=== PATIENT | female | born 1955 | race African-American/Black ===

== ENCOUNTER 2019-02-08 16:47 | Inpatient (IN) | payer OTHER ==
--- NOTE | 2019-02-08 17:08 | PDOC ---
Rapid Medical Evaluation Chief Complaint: Loss of Appetite Medical Evaluation: I have performed a brief in-person evaluation of this patient. The patient presents with a chief complaint of: Hx of seizures (is on keppra, vimpat, carbamazepine, phenobarbital), R sided hemiparesis (unknown cause) presents with decreased appetite x 3 days; denies vomiting, diarrhea, fever Pertinent physical exam findings: In NAD, +R sided paralysis I have ordered the following: Labs, EKG The patient will proceed to the ED for further evaluation. 02/08/19 17:03 Discharge Disposition - Discharge Dispostion Condition at time of disposition: Stable - Referrals - Patient Instructions - Post Discharge Activity
--- NOTE | 2019-02-08 17:45 | PDOC ---
History of Present Illness - General Chief Complaint: Loss of Appetite Stated Complaint: LOSS OF APPETITE Time Seen by Provider: 02/08/19 17:03 History Source: Family Exam Limitations: Clinical Condition - History of Present Illness Initial Comments: 02/08/19 17:55 63 year old female with PMH developmental delay, right sided weakness, one kidney (nephrectomy for suspected renal cancer, was not renal cancer), UTI, seizure disorder brought to ED by niece for failure to thrive. Niece stated over the last three days pt has been eating less, much more agitated than normal. Pt is unable to provide history or ROS. Ambulates with wheelchair. Baseline alert and oriented to person. Allergies: NKDA Past History - Past Medical History Allergies/Adverse Reactions: Allergies Allergy/AdvReac Type Severity Reaction Status Date / Time No Known Allergies Allergy Verified 02/08/19 17:04 COPD: No Seizures: Yes Other medical history: paralysed on rt.side. - Immunization History Immunization Up to Date: No - Suicide/Smoking/Psychosocial Hx Smoking History: Current every day smoker Have you smoked in the past 12 months: Yes Number of Cigarettes Smoked Daily: 2 Information on smoking cessation initiated: No Hx Alcohol Use: No Drug/Substance Use Hx: No Review of Systems - Review of Systems Able to Perform ROS?: No (Dementia) *Physical Exam - Vital Signs Last Vital Signs Temp Pulse Resp BP Pulse Ox 97.6 F 84 16 102/68 98 02/08/19 17:04 02/08/19 17:04 02/08/19 17:04 02/08/19 17:04 02/08/19 17:04 - Physical Exam Comments: 02/08/19 17:57 Constitutional: Well-nourished, Well-developed, appearing stated age. HEENT: head is normocephalic, atraumatic. EOMI. PERRLA. Neck: supple. Full ROM. Heart: regular rhythm. no murmurs, rubs or gallops. Lungs: clear to auscultation bilaterally. no crackles, rhonchi or wheezing. no stridor. Abdomen: soft, nontender. normal bowel sounds. no rebound, guarding, masses. Extremities: peripheral pulses intact. no lower extremity edema. Neurological: CN 2-12 grossly intact. moves all four extremities. Psych: awake, alert. follows commands. oriented to person. answers questions appropriately but requires repeated questions. ED Treatment Course - LABORATORY CBC & Chemistry Diagram: 02/08/19 18:27 02/08/19 18:27 Medical Decision Making - Medical Decision Making 02/08/19 17:58 63 year old female with above PMH brought to ED by niece for failure to thrive, AMS. Initial Vital Signs Temp Pulse Resp BP Pulse Ox 97.6 F 84 16 102/68 98 02/08/19 17:04 02/08/19 17:04 02/08/19 17:04 02/08/19 17:04 02/08/19 17:04 Afebrile. No tachycardia. No tachypnea. Hypotensive. No hypoxia on room air. Labs ordered: CBC, CMP, troponin, UA/UC Imaging ordered: CXR Medications ordered: normal saline bolus 500 cc EKG performed at 1754: rate 74, regular rhythm, normal axis, normal intervals, no acute ST changes. 02/08/19 19:04 CBC WBC 5.8 K/mm3 (4.0-10.0) 02/08/19 18:27 RBC 4.21 M/mm3 (3.60-5.2) 02/08/19 18:27 Hgb 12.4 GM/dL (10.7-15.3) 02/08/19 18:27 Hct 38.8 % (32.4-45.2) 02/08/19 18:27 MCV 92.2 fl (80-96) 02/08/19 18:27 MCH 29.6 pg (25.7-33.7) 02/08/19 18: MCHC 32.0 g/dl (32.0-36.0) 02/08/19 18:27 RDW 14.3 % (11.6-15.6) 02/08/19 18:27 Plt Count 298 K/MM3 (134-434) 02/08/19 18:27 MPV 7.2 fl (7.5-11.1) L 02/08/19 18:27 Absolute Neuts (auto) 2.6 K/mm3 (1.5-8.0) 02/08/19 18:27 Neutrophils % 44.0 % (42.8-82.8) 02/08/19 18:27 Lymphocytes % 45.8 % (8-40) H 02/08/19 18: Monocytes % 5.9 % (3.8-10.2) 02/08/19 18: Eosinophils % 3.7 % (0-4.5) 02/08/19 18: Basophils % 0.6 % (0-2.0) 02/08/19 18: Nucleated RBC % 0 % (0-0) 02/08/19 18: No leukocytosis. No anemia. 02/08/19 20:11 CMP Sodium 137 mmol/L (136-145) 02/08/19 18: Potassium 4.3 mmol/L (3.5-5.1) 02/08/19: Chloride 100 mmol/L (98-107) 02/08/19: Carbon Dioxide 29 mmol/L (21-32) 02/08/19 18: Anion Gap 7 MMOL/L (8-16) L 02/08/19 18: BUN 13 mg/dL (7-18) 02/08/19 18: Creatinine 1.0 mg/dL (0.55-1.3) 02/08/19 18: Est GFR (CKD-EPI)AfAm 70.42 02/08/19 18: Est GFR (CKD-EPI)NonAf 60.76 02/08/19 18: Random Glucose 93 mg/dL (74-106) 02/08/19 18: Lactic Acid 1.3 mmol/L (0.4-2.0) 02/08/19 18:30 Calcium 8.9 mg/dL (8.5-10.1) 02/08/19 18: Magnesium 2.3 mg/dL (1.8-2.4) 02/08/19 18: Total Bilirubin 0.2 mg/dL (0.2-1) 02/08/19 18: AST 20 U/L (15-37) 02/08/19 18: ALT 17 U/L (13-61) 02/08/19 18: Alkaline Phosphatase 221 U/L (45-117) H 02/08/19 18: Troponin I 0.02 ng/ml (0.00-0.05) 02/08/19 18: Total Protein 8.6 g/dl (6.4-8.2) H 02/08/19 18:27 Albumin 4.0 g/dl (3.4-5.0) 02/08/19 18:27 No electrolyte abnormalities. No LUISA. Normal troponin. Urine Test Results Urine Color Yellow 02/08/19 18:44 Urine Appearance Turbid 02/08/19 18:44 Urine pH 6.0 (5.0-8.0) 02/08/19 18:44 Ur Specific [employer] 1.021 (1.010-1.035) 02/08/19 18:44 Urine Protein 2+ (NEGATIVE) H 02/08/19 18:44 Urine Glucose (UA) Negative (NEGATIVE) 02/08/19 18:44 Urine Ketones Trace (NEGATIVE) H 02/08/19 18:44 Urine Blood Negative (NEGATIVE) 02/08/19 18:44 Urine Nitrite Negative (NEGATIVE) 02/08/19 18:44 Urine Bilirubin Negative (NEGATIVE) 02/08/19 18:44 Ur Leukocyte Esterase 3+ (NEGATIVE) H 02/08/19 18:44 WBC 200+ Pt has UTI Medications ordered: Ceftriaxone 1g IV Microblog sent for admission for AMS, UTI, failure to thrive. Pending admission. *DC/Admit/Observation/Transfer Diagnosis at time of Disposition: UTI (urinary tract infection), Altered mental status, Failure to thrive - Discharge Dispostion Condition at time of disposition: Stable Decision to Admit order: Yes - Referrals Referrals: Donaldo Altamirano MD [Primary Care Provider] - - Patient Instructions - Post Discharge Activity
[2019-02-08 18:42] LABS: BASO % 0.6 % (0-2.0); EOS % 3.7 % (0-4.5); HEMATOCRIT 38.8 % (32.4-45.2); HEMOGLOBIN 12.4 GM/dL (10.7-15.3); LYMPH % 45.8 % (8-40); MCH 29.6 pg (25.7-33.7); MEAN CELL VOLUME 92.2 fl (80-96); MEAN PLT VOLUME 7.2 fl (7.5-11.1); MONO % 5.9 % (3.8-10.2); PLATELET COUNT 298 K/MM3 (134-434); RBC 4.21 M/mm3 (3.60-5.2); RDW 14.3 % (11.6-15.6); WHITE BLOOD COUNT 5.8 K/mm3 (4.0-10.0)
[2019-02-08 18:57] LABS: EPI CELLS 2.1 /HPF (0-5/HPF); HYALINE CASTS 12 /lpf (0-8); URINE APPEARANCE TURBID; URINE BACTERIA 7754.1 /hpf (NEGATIVE); URINE BILIRUBIN NEGATIVE (NEGATIVE); URINE COLOR YELLOW; URINE GLUCOSE (UA) NEGATIVE (NEGATIVE); URINE KETONE TRACE (NEGATIVE); URINE LEUK ESTERASE 3+ (NEGATIVE); URINE NITRITE NEGATIVE (NEGATIVE); URINE PROTEIN 2+ (NEGATIVE); URINE WBC 219 /hpf (0-5)
[2019-02-08 19:19] LABS: BILIRUBIN,TOTAL 0.2 mg/dL (0.2-1); CALCIUM 8.9 mg/dL (8.5-10.1); MAGNESIUM 2.3 mg/dL (1.8-2.4); POTASSIUM 4.3 mmol/L (3.5-5.1); TOT PROT 8.6 g/dl (6.4-8.2)
[2019-02-08 19:21] LABS: INR 0.98 (0.83-1.09); PROTHROMBIN TIME (PATIENT) 11.6 SEC (9.7-13.0)
[2019-02-08 19:24] LABS: ACTIVATED PTT 31.6 SECONDS (25.2-36.5)
--- NOTE | 2019-02-08 19:38 | PDOC ---
Documentation entered by Vanessa Zimmerman SCRIBE, acting as scribe for Magdy Cook MD. Magdy Cook MD: This documentation has been prepared by the Erasmo lira Daisy, SCRIBE, under my direction and personally reviewed by me in its entirety. I confirm that the documentation accurately reflects all work, treatment, procedures, and medical decision making performed by me. Attending Attestation - Resident Resident Name: Rody Nguyen - ED Attending Attestation I have performed the following: I have examined & evaluated the patient, The case was reviewed & discussed with the resident, I agree w/resident's findings & plan - HPI HPI: 02/08/19 19:19 The patient is a 63YOF with a PMH of developmental delay, s/p nephrectomy, UTIs , and seizure disorder who was brought into the ED by her niece for decreased PO intake for the past 3 days and has been more agitated than baseline. Patient is unable to provide further history. She is oriented to person at baseline. Allergies: NKDA - Physicial Exam PE: 02/08/19 21:41 Agree with exam as documented by resident - Medical Decision Making 02/08/19 21:41 63F developmental delay, s/p nephrectomy, UTIs, and seizure disorder w/ VNS implanted here with acute agitation and change in baseline behavior including refusing PO Evaluate for likely infectious source, consider electrolyte abnormality, anemia. If no obvious cause eval for organic intracranial pathology f/u labs, ua dispo per clinical course 02/08/19 21:45 +UTI, likely cause of acute agitation Abx admit
[2019-02-08] MEDS ORDERED: CEFTRIAXONE 1 GM in DEXTROSE 5%-WATER - 100 ML IVPB ONE (19:53)
[2019-02-08] MEDS ORDERED: SODIUM CHLORIDE 500 ML IV STA (19:53)
[2019-02-08] MEDS ORDERED: CEFTRIAXONE 1 GM/50 ML BAG ONE (19:56)
[2019-02-08 20:21] LABS: URINE RBC 6.7 /hpf (0-4)
[2019-02-08 20:22] LABS: YEAST NONE SEEN (NEGATIVE)
--- NOTE | 2019-02-08 22:20 | HP ---
CHIEF COMPLAINT:Failure to thrive PCP:Dr. Altamirano HISTORY OF PRESENT ILLNESS: Sheela Hearn is a 63 year old female with PMH developmental delay, right sided weakness, one kidney (nephrectomy for suspected renal cancer, was not renal cancer), chronic UTI, seizure disorder brought to ED by niece for failure to thrive. pt seen in ED, no family present, pt unable to give history, as per ED notes, Niece stated over the last three days pt has been eating less, much more agitated than normal. Pt is unable to provide history or ROS. Ambulates with wheelchair. Baseline alert and oriented to person. ER course was notable for: (1)+UA (2)lactic wnl (3)afebrile Recent Travel: PAST MEDICAL HISTORY:right sided weakness, one kidney (nephrectomy for suspected renal cancer, was not renal cancer), chronic UTI, seizure disorder PAST SURGICAL HISTORY:Nephrectomy Social History: Smoking:current smoker Alcohol:no Drugs: no Family History: Allergies No Known Allergies Allergy (Verified 02/08/19 17:04) HOME MEDICATIONS: Keppra dosage? REVIEW OF SYSTEMS unable to assess, developmental delay PHYSICAL EXAMINATION Vital Signs - 24 hr 02/08/19 17:04 Temperature 97.6 F Pulse Rate 84 Respiratory 16 Rate Blood Pressure 102/68 O2 Sat by Pulse 98 Oximetry (%) GENERAL: Awake, alert, and fully oriented, in no acute distress. HEAD: Normal with no signs of trauma. EYES: Pupils equal, round and reactive to light, extraocular movements intact, sclera anicteric, conjunctiva clear. No lid lag. EARS, NOSE, THROAT: Ears normal, nares patent, oropharynx clear without exudates. Moist mucous membranes. NECK: Normal range of motion, supple without lymphadenopathy, JVD, or masses. LUNGS: Breath sounds equal, clear to auscultation bilaterally. No wheezes, and no crackles. No accessory muscle use. HEART: Regular rate and rhythm, normal S1 and S2 without murmur, rub or gallop. ABDOMEN: Soft, nontender, not distended, normoactive bowel sounds, no guarding, no rebound, no masses. No hepatomegaly or splenomegaly. MUSCULOSKELETAL: Normal range of motion at all joints. No bony deformities or tenderness. No CVA tenderness. UPPER EXTREMITIES: 2+ pulses, warm, well-perfused. No cyanosis. No clubbing. No peripheral edema. LOWER EXTREMITIES: 2+ pulses, warm, well-perfused. No calf tenderness. No peripheral edema. NEUROLOGICAL: Cranial nerves II-XII intact. Normal speech. Normal gait. PSYCHIATRIC: Cooperative. Good eye contact. Appropriate mood and affect. SKIN: Warm, dry, normal turgor, no rashes or lesions noted, normal capillary refill. Laboratory Results - last 24 hr 02/08/19 02/08/19 02/08/19 18:27 18:27 18:27 WBC 5.8 RBC 4.21 Hgb 12.4 Hct 38.8 MCV 92.2 MCH 29.6 MCHC 32.0 RDW 14.3 Plt Count 298 MPV 7.2 L Absolute Neuts (auto) 2.6 Neutrophils % 44.0 Lymphocytes % 45.8 H Monocytes % 5.9 Eosinophils % 3.7 Basophils % 0.6 Nucleated RBC % 0 PT with INR INR PTT (Actin FS) Sodium 137 Potassium 4.3 Chloride 100 Carbon Dioxide 29 Anion Gap 7 L BUN 13 Creatinine 1.0 Est GFR (CKD-EPI)AfAm 70.42 Est GFR (CKD-EPI)NonAf 60.76 Random Glucose 93 Lactic Acid Calcium 8.9 Magnesium 2.3 Total Bilirubin 0.2 AST 20 ALT 17 Alkaline Phosphatase 221 H Troponin I 0.02 Total Protein 8.6 H Albumin 4.0 Urine Color Urine Appearance Urine pH Ur Specific Carey Urine Protein Urine Glucose (UA) Urine Ketones Urine Blood Urine Nitrite Urine Bilirubin Urine Urobilinogen Ur Leukocyte Esterase Urine WBC (Auto) Urine RBC (Auto) Urine Casts (Auto) U Epithel Cells (Auto) Urine Bacteria (Auto) Urine Yeast (Auto) 02/08/19 02/08/19 02/08/19 18:30 18:30 18:44 WBC RBC Hgb Hct MCV MCH MCHC RDW Plt Count MPV Absolute Neuts (auto) Neutrophils % Lymphocytes % Monocytes % Eosinophils % Basophils % Nucleated RBC % PT with INR 11.60 INR 0.98 PTT (Actin FS) 31.6 Sodium Potassium Chloride Carbon Dioxide Anion Gap BUN Creatinine Est GFR (CKD-EPI)AfAm Est GFR (CKD-EPI)NonAf Random Glucose Lactic Acid 1.3 Calcium Magnesium Total Bilirubin AST ALT Alkaline Phosphatase Troponin I Total Protein Albumin Urine Color Yellow Urine Appearance Turbid Urine pH 6.0 Ur Specific [employer] 1.021 Urine Protein 2+ H Urine Glucose (UA) Negative Urine Ketones Trace H Urine Blood Negative Urine Nitrite Negative Urine Bilirubin Negative Urine Urobilinogen 1.0 Ur Leukocyte Esterase 3+ H Urine WBC (Auto) 219 Urine RBC (Auto) 6.7 Urine Casts (Auto) 12 U Epithel Cells (Auto) 2.1 Urine Bacteria (Auto) 7754.1 Urine Yeast (Auto) None seen ASSESSMENT/PLAN: Sheela Hearn is a 63 yr old F, medical condition developmental delay, seizure disorder, right sided weakness, chronic UTI, admitted for Admitting Diagnosis AMS UTI Chronic Problem Seizure disorder Developmental delay A/P: #AMS #UTI -UA +leuk, -lactic wnl -IVF -IV rocephin 1gram -urine cx in process #Seizure disorder -pt on keppra dose not verified, -seizure precautions FEN: IVF Monitor electrolytes Reg diet Visit type - Emergency Visit Emergency Visit: Yes Care time: The patient presented to the Emergency Department on the above date and was hospitalized for further evaluation of their emergent condition. - New Patient This patient is new to me today: Yes Date on this admission: 02/08/19 - Critical Care Critical Care patient: No
[2019-02-08] MEDS ORDERED: HEPARIN NA (PORCINE) 5,000 UNITS/ML 1ML VIAL ONE (23:44)
[2019-02-09] MEDS: SODIUM CHLORIDE 1,000 ML IV SCH ×3 (01:05→20:38)
[2019-02-09] MEDS: HEPARIN NA (PORCINE) 5,000 UNITS/ML 1ML VIAL SQ SCH ×3 (01:06→22:02)
[2019-02-09 09:25] LABS: HEMATOCRIT 32.6 % (32.4-45.2); HEMOGLOBIN 10.5 GM/dL (10.7-15.3); MCH 29.8 pg (25.7-33.7); MCHC 32.3 g/dl (32.0-36.0); MEAN CELL VOLUME 92.5 fl (80-96); MEAN PLT VOLUME 7.3 fl (7.5-11.1); PLATELET COUNT 267 K/MM3 (134-434); RBC 3.52 M/mm3 (3.60-5.2); RDW 14.4 % (11.6-15.6); WHITE BLOOD COUNT 5.4 K/mm3 (4.0-10.0)
[2019-02-09] MEDS ORDERED: cefTRIAXone SODIUM 1 GM VIAL ONE (09:53)
[2019-02-09] MEDS ORDERED: DEXTROSE 5%-WATER - 50 ML IVPB ONE (09:53)
[2019-02-09 09:54] LABS: ALBUMIN 3.1 g/dl (3.4-5.0); BILIRUBIN,TOTAL 0.2 mg/dL (0.2-1); CALCIUM 8.5 mg/dL (8.5-10.1); CREATININE 0.8 mg/dL (0.55-1.3); POTASSIUM 4.2 mmol/L (3.5-5.1); TOT PROT 6.7 g/dl (6.4-8.2)
[2019-02-09] MEDS: CEFTRIAXONE 1 GM in DEXTROSE 5%-WATER - 50 ML IVPB SCH (10:05)
--- NOTE | 2019-02-09 14:42 | EKG ---
Test Reason : Blood Pressure : / mmHG Vent. Rate : 074 BPM Atrial Rate : 074 BPM P-R Int : 166 ms QRS Dur : 070 ms QT Int : 384 ms P-R-T Axes : 051 022 059 degrees QTc Int : 426 ms NORMAL SINUS RHYTHM NORMAL ECG NO PREVIOUS ECGS AVAILABLE Confirmed by MARY TANG MD ([id number]) on 02/09/2019 2:41:56 PM Referred By: Confirmed By:MARY TANG MD
[2019-02-09 16:42] VITALS: BMI 20.3
[2019-02-10] MEDS: SODIUM CHLORIDE 1,000 ML IV SCH ×2 (00:24→12:35)
[2019-02-10] MEDS ORDERED: levETIRAcetam 500 MG TABLET (FP) PO ONE (00:28)
[2019-02-10] MEDS ORDERED: PT OWN MED DRAWER 7, Y5N ONE ×2 (09:10→21:20)
[2019-02-10] MEDS ORDERED: cefTRIAXone SODIUM 1 GM VIAL ONE (09:11)
[2019-02-10] MEDS ORDERED: DEXTROSE 5%-WATER - 50 ML IVPB ONE (09:11)
[2019-02-10] MEDS: HEPARIN NA (PORCINE) 5,000 UNITS/ML 1ML VIAL SQ SCH ×2 (09:20→21:56)
[2019-02-10] MEDS: CEFTRIAXONE 1 GM in DEXTROSE 5%-WATER - 50 ML IVPB SCH (09:28)
[2019-02-10] MEDS ORDERED: levETIRAcetam 500 MG/5 ML ORAL SOLUTION (UNIT-DOSE CUPS) PO SCH (10:00)
--- NOTE | 2019-02-10 11:32 | PN ---
Physical Exam: SUBJECTIVE: Patient seen and examined at the bedside. had some abdominal discomfort but denies any other malaise. After she was seen, received microblog that patient had a seizure at 11:45a.m today that lasted apx 5 seconds. saw patient post seizure and she appeared to be post ilctal. vitals stable. OBJECTIVE: reported to me that patient had a seizure at 11:45, seen post ictal, seizure witnessed by staff, upper body tremors not presently on her home regimen of anti epilectics. will order: meds confirmed by RN will convert seizure meds to IV form further will order keppra, vimpat and phenobarbitol levels. uc with strep viridians. will order blood cultures Vital Signs Period Temp Pulse Resp BP Sys/[place] Pulse Ox Last 24 Hr 97.9 F-98.2 F 70-77 18-20 106-125/45-63 97-99 GENERAL: awake earlier, now post ictal HEAD: Normal with no signs of trauma. EYES: PERRL, extraocular movements intact, sclera anicteric, conjunctiva clear. No ptosis. ENT: Ears normal, nares patent, oropharynx clear without exudates, moist mucous membranes. NECK: Trachea midline, full range of motion, supple. LUNGS: Breath sounds equal, clear to auscultation bilaterally HEART: Regular rate and rhythm, ABDOMEN: Soft, nontender, nondistended, normoactive bowel sounds EXTREMITIES: ankle non pittine edema NEUROLOGICAL: speech garbled, unsure of bed bound status, will order PT when more stable. SKIN: Warm, dry, normal turgor, no rashes or lesions noted Active Medications Generic Name Dose Route Start Last Admin Trade Name Freq PRN Reason Stop Dose Admin Heparin Sodium (Porcine) 5,000 unit 02/08/19 22:15 02/10/19 09:20 Heparin - SQ 5,000 unit BID MARY Administration Sodium Chloride 1,000 mls @ 75 mls/hr 02/08/19 22:15 02/10/19 00:24 Normal Saline - IV Not Given ASDIR MARY Ceftriaxone Sodium 1 gm/ 50 mls @ 100 mls/hr 02/09/19 10:00 02/10/19 09:28 Dextrose IVPB 100 mls/hr DAILY MARY Administration Protocol Levetiracetam 1,500 mg 02/10/19 10:00 02/10/19 09:20 Keppra Oral Solution - PO 1,500 mg BID MARY Administration ASSESSMENT/PLAN: The patient is a 63 year old female with a significant past medical history of developmental delay, s/p nephrectomy (for?), chronic UTIs, and seizure disorder. She was brought into the ED by her family for decreased PO intake x 3 days and increased agitation. Patient is unable to provide me with any further history. She is admitted for a septic workup and antibiotics. Problem List - Problems (1) Seizures Assessment/Plan: Patient on Keppra, Vimpat and Phenobarbital home medications. Home seizure medications restarted today. She had a witnessed seizure today that lasted approximately 5 seconds. Will order Keppra, vimpat and phenobartital levels. Continue with seizure precautions and close monitoring of mental status. Maintain safety and aspiration precautions. Code(s): R56.9 - UNSPECIFIED CONVULSIONS (2) Failure to thrive syndrome, adult Assessment/Plan: Poor PO intake reported per ED documentation. Will add supplements and dietary consult. Add multivitamin, monitor albumin. Code(s): R62.7 - ADULT FAILURE TO THRIVE (3) Altered mental status Assessment/Plan: Agitation, altered mental status likely secondary to uncontrolled seizures in the setting of an acute infection. UC shows strep virdins. Will order blood cultures. Code(s): R41.82 - ALTERED MENTAL STATUS, UNSPECIFIED (4) UTI (urinary tract infection) Assessment/Plan: On Ceftriaxone 1 gram for UTI. UC grew strep viridins. awaiting sensititives. Continue IVF hydration. Code(s): N39.0 - URINARY TRACT INFECTION, SITE NOT SPECIFIED (5) Prophylactic measure Assessment/Plan: SCDs, heparin FEN: normal saline monitor electrolytes consult dietary full code Code(s): Z29.9 - ENCOUNTER FOR PROPHYLACTIC MEASURES, UNSPECIFIED Visit type - Emergency Visit Emergency Visit: Yes ED Registration Date: 02/08/19 Care time: The patient presented to the Emergency Department on the above date and was hospitalized for further evaluation of their emergent condition. - New Patient This patient is new to me today: Yes Date on this admission: 02/10/19 - Critical Care Critical Care patient: No - Discharge Referral Referred to [facility] Med [facility] No
[2019-02-10] MEDS ORDERED: Lacosamide 50 MG/5 ML ORAL SOLUTION UNIT CUPS PO SCH (11:45)
[2019-02-10] MEDS ORDERED: PHENobarbital 30 MG TABLET PO SCH (11:45)
[2019-02-10] MEDS ORDERED: Lacosamide 200 MG/20 ML VIAL IVPB ONE (13:00)
[2019-02-10] MEDS ORDERED: levETIRAcetam 500 MG/5 ML INJECTION VIAL IVPB ONE (13:00)
[2019-02-10] MEDS: PHENobarbital SODIUM 65 MG/1 ML VIAL IVPB SCH ×2 (13:13→22:15)
[2019-02-10] MEDS: carBAMazepine 200 MG TABLET PO SCH ×2 (13:13→21:55)
[2019-02-10] MEDS: MIRTAZAPINE 30 MG TABLET (FP) PO SCH (21:56)
[2019-02-10] MEDS: levETIRAcetam 500 MG/5 ML INJECTION VIAL IVPB SCH (23:28)
[2019-02-11] MEDS: SODIUM CHLORIDE 1,000 ML IV SCH ×2 (05:47→22:50)
--- NOTE | 2019-02-11 07:51 | PN ---
Progress Note, Physician - Current Medication List Current Medications: Active Medications Carbamazepine (Tegretol -) 200 mg PO BID [facility] Last Admin: 02/10/19 21:55 Dose: 200 mg Heparin Sodium (Porcine) (Heparin -) 5,000 unit SQ BID [facility] Last Admin: 02/10/19 21:56 Dose: 5,000 unit Sodium Chloride (Normal Saline -) 1,000 mls @ 75 mls/hr IV ASDIR [facility] Last Admin: 02/11/19 05:47 Dose: 75 mls/hr Ceftriaxone Sodium 1 gm/ (Dextrose) 50 mls @ 100 mls/hr IVPB DAILY [facility]; Protocol Last Admin: 02/10/19 09:28 Dose: 100 mls/hr Lacosamide (Vimpat Injection -) 150 mg IVPB DAILY [facility] Levetiracetam (Keppra Injection -) 1,500 mg IVPB BID [facility] Last Admin: 02/10/19 23:28 Dose: 1,500 mg Mirtazapine (Remeron -) 30 mg PO HS [facility] Last Admin: 02/10/19 21:56 Dose: 30 mg Phenobarbital (Phenobarbital Injection -) 32.4 mg IVPB BID [facility] Last Admin: 02/10/19 22:15 Dose: 32.4 mg - Objective Vital Signs: Vital Signs Temperature 98.2 F 02/11/19 06:00 Pulse Rate 81 02/11/19 06:00 Respiratory Rate 18 02/11/19 06:00 Blood Pressure 118/67 02/11/19 06:00 O2 Sat by Pulse Oximetry (%) 97 02/10/19 21:00 Labs: CBC, BMP 02/09/19 09:00 02/09/19 09:00 INR, PTT INR 0.98 (0.83-1.09) 02/08/19 18:30 Problem List - Problems (1) Seizures Assessment/Plan: Patient on Keppra, Vimpat and Phenobarbital home medications. Home seizure medications restarted today. She had a witnessed seizure today that lasted approximately 5 seconds. Will order Keppra, vimpat and phenobartital levels. Continue with seizure precautions and close monitoring of mental status. Maintain safety and aspiration precautions. Code(s): R56.9 - UNSPECIFIED CONVULSIONS (2) Failure to thrive syndrome, adult Assessment/Plan: Poor PO intake reported per ED documentation. Will add supplements and dietary consult. Add multivitamin, monitor albumin. Code(s): R62.7 - ADULT FAILURE TO THRIVE (3) Altered mental status Assessment/Plan: Agitation, altered mental status likely secondary to uncontrolled seizures in the setting of an acute infection. UC shows strep virdins. Will order blood cultures. Code(s): R41.82 - ALTERED MENTAL STATUS, UNSPECIFIED (4) UTI (urinary tract infection) Assessment/Plan: On Ceftriaxone 1 gram for UTI. UC grew strep viridins. awaiting sensititives. Continue IVF hydration. Code(s): N39.0 - URINARY TRACT INFECTION, SITE NOT SPECIFIED (5) Prophylactic measure Assessment/Plan: SCDs, heparin FEN: normal saline monitor electrolytes consult dietary full code Code(s): Z29.9 - ENCOUNTER FOR PROPHYLACTIC MEASURES, UNSPECIFIED
[2019-02-11 08:45] LABS: BASO % 0.5 % (0-2.0); EOS % 4.3 % (0-4.5); HEMATOCRIT 29.4 % (32.4-45.2); HEMOGLOBIN 9.7 GM/dL (10.7-15.3); LYMPH % 53.8 % (8-40); MCHC 32.8 g/dl (32.0-36.0); MEAN CELL VOLUME 91.6 fl (80-96); MEAN PLT VOLUME 7.1 fl (7.5-11.1); MONO % 7.6 % (3.8-10.2); NEUT % 33.8 % (42.8-82.8); PLATELET COUNT 258 K/MM3 (134-434); RBC 3.21 M/mm3 (3.60-5.2); RDW 14.1 % (11.6-15.6)
[2019-02-11] MEDS ORDERED: PT OWN MED DRAWER 7, Y5N ONE (09:04)
[2019-02-11 09:05] LABS: ALBUMIN 2.9 g/dl (3.4-5.0); BILIRUBIN,TOTAL 0.2 mg/dL (0.2-1); CALCIUM 8.7 mg/dL (8.5-10.1); CREATININE 0.7 mg/dL (0.55-1.3); MAGNESIUM 2.3 mg/dL (1.8-2.4); POTASSIUM 4.2 mmol/L (3.5-5.1); TOT PROT 6.4 g/dl (6.4-8.2)
[2019-02-11] MEDS ORDERED: DEXTROSE 5%-WATER - 50 ML IVPB ONE (09:05)
[2019-02-11] MEDS ORDERED: cefTRIAXone SODIUM 1 GM VIAL ONE (09:05)
[2019-02-11] MEDS: carBAMazepine 200 MG TABLET PO SCH ×2 (09:25→22:50)
[2019-02-11] MEDS: HEPARIN NA (PORCINE) 5,000 UNITS/ML 1ML VIAL SQ SCH ×2 (09:25→22:50)
[2019-02-11] MEDS: levETIRAcetam 500 MG/5 ML INJECTION VIAL IVPB SCH (09:57)
[2019-02-11] MEDS ORDERED: Lacosamide 200 MG/20 ML VIAL IVPB SCH (10:00)
--- NOTE | 2019-02-11 10:37 | PN ---
Physical Exam: SUBJECTIVE: Patient seen and examined OBJECTIVE: Vital Signs Period Temp Pulse Resp BP Sys/Kapadia Pulse Ox Last 24 Hr 97.9 F-98.4 F 80-98 18-22 100-148/55-72 97 GENERAL: awake and ate breakfast per nurse, now asleep on exam HEAD: Normal with no signs of trauma. EYES: PERRL, extraocular movements intact, sclera anicteric, conjunctiva clear. No ptosis. ENT: Ears normal, nares patent, oropharynx clear without exudates, moist mucous membranes. NECK: Trachea midline, full range of motion, supple. LUNGS: Breath sounds equal, clear to auscultation bilaterally HEART: Regular rate and rhythm, ABDOMEN: Soft, nontender, nondistended, normoactive bowel sounds EXTREMITIES: ankle non pittine edema NEUROLOGICAL: speech garbled, unsure of bed bound status, will order PT when more stable. SKIN: Warm, dry, normal turgor, no rashes or lesions noted Laboratory Results - last 24 hr 02/11/19 02/11/19 08:15 08:15 WBC 7.0 RBC 3.21 L Hgb 9.7 L Hct 29.4 L MCV 91.6 MCH 30.0 MCHC 32.8 RDW 14.1 Plt Count 258 MPV 7.1 L Absolute Neuts (auto) 2.4 Neutrophils % 33.8 L D Lymphocytes % 53.8 H Monocytes % 7.6 Eosinophils % 4.3 Basophils % 0.5 Nucleated RBC % 0 Sodium 138 Potassium 4.2 Chloride 107 Carbon Dioxide 26 Anion Gap 5 L BUN 16 Creatinine 0.7 Est GFR (CKD-EPI)AfAm 108.38 Est GFR (CKD-EPI)NonAf 93.51 Random Glucose 82 Calcium 8.7 Magnesium 2.3 Total Bilirubin 0.2 AST 16 ALT 14 Alkaline Phosphatase 168 H Total Protein 6.4 Albumin 2.9 L Active Medications Generic Name Dose Route Start Last Admin Trade Name Freq PRN Reason Stop Dose Admin Carbamazepine 200 mg 02/10/19 11:45 02/11/19 09:25 Tegretol - PO 200 mg BID MARY Administration Heparin Sodium (Porcine) 5,000 unit 02/08/19 22:15 02/11/19 09:25 Heparin - SQ 5,000 unit BID MARY Administration Sodium Chloride 1,000 mls @ 75 mls/hr 02/08/19 22:15 02/11/19 05:47 Normal Saline - IV 75 mls/hr ASDIR MARY Administration Ceftriaxone Sodium 1 gm/ 50 mls @ 100 mls/hr 02/09/19 10:00 02/10/19 09:28 Dextrose IVPB 100 mls/hr DAILY MARY Administration Protocol Lacosamide 150 mg 02/11/19 10:00 02/11/19 09:25 Vimpat Injection - IVPB 150 mg DAILY MARY Administration Levetiracetam 1,500 mg 02/10/19 22:00 02/11/19 09:57 Keppra Injection - IVPB 1,500 mg BID MARY Administration Mirtazapine 30 mg 02/10/19 22:00 02/10/19 21:56 Remeron - PO 30 mg HS MARY Administration Phenobarbital 32.4 mg 02/10/19 13:00 02/10/19 22:15 Phenobarbital Injection - IVPB 32.4 mg BID MARY Administration ASSESSMENT/PLAN: The patient is a 63 year old female with a significant past medical history of developmental delay, s/p nephrectomy (for?), chronic UTIs, and seizure disorder. She was brought into the ED by her family for decreased PO intake x 3 days and increased agitation. Patient is unable to provide me with any further history. She is admitted for a septic workup and antibiotics. Problem List - Problems (1) Seizures Assessment/Plan: Patient on Keppra, Vimpat and Phenobarbital home medications. Home seizure medications restarted on 02/10/19 She had a witnessed seizure 02/10 that lasted approximately 5 seconds with upper body tremors. Continue with seizure precautions and close monitoring of mental status. Awake earlier this a.m., now asleep. Maintain safety and aspiration precautions. levels pending neurology consulted. Code(s): R56.9 - UNSPECIFIED CONVULSIONS (2) Failure to thrive syndrome, adult Assessment/Plan: Monitor weights, dietary consult for supplements Code(s): R62.7 - ADULT FAILURE TO THRIVE (3) Altered mental status Assessment/Plan: Rule out acute infection. UC + strep virdians, blood cultures pending on Ceftriaxone 1 gram daily Code(s): R41.82 - ALTERED MENTAL STATUS, UNSPECIFIED (4) UTI (urinary tract infection) Assessment/Plan: + UC, on ceftriaxone. Code(s): N39.0 - URINARY TRACT INFECTION, SITE NOT SPECIFIED (5) Prophylactic measure Assessment/Plan: SCDs, heparin FEN: normal saline monitor electrolytes consult dietary full code Code(s): Z29.9 - ENCOUNTER FOR PROPHYLACTIC MEASURES, UNSPECIFIED Visit type - Emergency Visit Emergency Visit: Yes ED Registration Date: 02/08/19 Care time: The patient presented to the Emergency Department on the above date and was hospitalized for further evaluation of their emergent condition. - New Patient This patient is new to me today: No - Critical Care Critical Care patient: No - Discharge Referral Referred to [facility] Med P.C.: No
--- NOTE | 2019-02-11 10:41 | HP ---
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 Renal/: Yes: Other (solitary kidney) - Smoking History Smoking history: Current every day smoker Have you smoked in the past 12 months: Yes Aproximately how many cigarettes per day: 2 - Alcohol/Substance Use Hx Alcohol Use: No - Social History Usual Living Arrangement: Yes: With Significant Other ADL: Family Assistance History of Recent Travel: No Home Medications - Allergies Allergies/Adverse Reactions: Allergies Allergy/AdvReac Type Severity Reaction Status Date / Time No Known Allergies Allergy Verified 02/08/19 17:04 - Home Medications Home Medications: Ambulatory Orders Carbamazepine 200 mg PO BID 02/09/19 Escitalopram Oxalate 200 mg DAILY 02/09/19 Lacosamide Liquid [Vimpat Liquid -] 150 mg PO DAILY 02/09/19 Mirtazapine 30 mg PO HS 02/09/19 Omeprazole 20 mg PO DAILY 02/09/19 Phenobarbital 32.4 mg PO BID 02/09/19 levETIRAcetam [Keppra Oral Solution -] 1,500 mg PO BID 02/09/19 Physical Examination Vital Signs: Vital Signs Temperature 97.9 F 02/11/19 09:31 Pulse Rate 80 02/11/19 09:31 Respiratory Rate 18 02/11/19 09:31 Blood Pressure 117/65 02/11/19 09:31 O2 Sat by Pulse Oximetry (%) 97 02/10/19 21:00 Labs: CBC, BMP 02/11/19 08:15 02/11/19 08:15 Problem List - Problems (1) Seizures Code(s): R56.9 - UNSPECIFIED CONVULSIONS (2) Failure to thrive syndrome, adult Code(s): R62.7 - ADULT FAILURE TO THRIVE (3) Altered mental status Code(s): R41.82 - ALTERED MENTAL STATUS, UNSPECIFIED (4) UTI (urinary tract infection) Code(s): N39.0 - URINARY TRACT INFECTION, SITE NOT SPECIFIED (5) Prophylactic measure Code(s): Z29.9 - ENCOUNTER FOR PROPHYLACTIC MEASURES, UNSPECIFIED
[2019-02-11] MEDS: PHENobarbital SODIUM 65 MG/1 ML VIAL IVPB SCH (11:17)
[2019-02-11] MEDS: CEFTRIAXONE 1 GM in DEXTROSE 5%-WATER - 50 ML IVPB SCH (12:00)
[2019-02-11] MEDS: MULTIVITAMINS (DAILY MVI) TABLET (FP) PO SCH (14:14)
--- NOTE | 2019-02-11 16:25 | CON.NEURO ---
Consult - Alcohol/Substance Use Hx Alcohol Use: No - Smoking History Smoking history: Current every day smoker Have you smoked in the past 12 months: Yes Aproximately how many cigarettes per day: 2 Home Medications - Allergies Allergies/Adverse Reactions: Allergies Allergy/AdvReac Type Severity Reaction Status Date / Time No Known Allergies Allergy Verified 02/08/19 17:04 - Home Medications Home Medications: Ambulatory Orders Carbamazepine 200 mg PO BID 02/09/19 Escitalopram Oxalate 200 mg DAILY 02/09/19 Lacosamide Liquid [Vimpat Liquid -] 150 mg PO DAILY 02/09/19 Mirtazapine 30 mg PO HS 02/09/19 Omeprazole 20 mg PO DAILY 02/09/19 Phenobarbital 32.4 mg PO BID 02/09/19 levETIRAcetam [Keppra Oral Solution -] 1,500 mg PO BID 02/09/19 Physical Exam-Neuro Vital Signs: Vital Signs Temperature 98.0 F 02/11/19 14:40 Pulse Rate 73 02/11/19 14:40 Respiratory Rate 18 02/11/19 14:40 Blood Pressure 104/62 02/11/19 14:40 O2 Sat by Pulse Oximetry (%) 98 02/11/19 10:00 Labs: CBC, BMP 02/11/19 08:15 02/11/19 08:15 INR, PTT INR 0.98 (0.83-1.09) 02/08/19 18:30 Assessment/Plan cc History of Epilepsy HPI 63 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 Patient lives at home with family and completely dependent for basic activity of living. She has hisotry of nephrectomy , and epilepsy. She is on four AED ( KEPPRA 1500 mg po bid, phenobarb 32 mg po bid, lacosamide 150 mg once a day , cbz 200 mg po bid) Patient did not have any seizure . There is no new focal neurological symptom. PMHright sided weakness, one kidney (nephrectomy for suspected renal cancer, was not renal cancer), chronic UTI, seizure disorder PSH :Nephrectomy Social History: Smoking:current smoker Alcohol:no Drugs: no Home AED as above. NEUROLOGICAL EXAMINATION Alert follow command, speeech is slurred ( old), no neck stiffness EOmi, pupils reactive right sided hemparesis no brain imaging available no eed available Assessment/Plan 63 year old female history of epilepsy , she is on four aed and had seizure yesterday as medication was with held as there was no information available Plan: patient has improved and able to take medication orally - switch all medication to oral, spoke to nurse - no need for imaging or eeg at this time, as her did not came for seizure - ROME phillips Thanking you so much Gilberto Crespo MD
[2019-02-11] MEDS: MIRTAZAPINE 30 MG TABLET (FP) PO SCH (22:49)
[2019-02-11] MEDS: levETIRAcetam 500 MG TABLET (FP) PO SCH (22:49)
[2019-02-11] MEDS: PHENobarbital 30 MG TABLET PO SCH (22:49)
[2019-02-11] MEDS: LACOSAMIDE 50 MG TABLET PO SCH (22:50)
[2019-02-12 08:35] LABS: BASO % 0.5 % (0-2.0); EOS % 5.6 % (0-4.5); HEMATOCRIT 29.2 % (32.4-45.2); HEMOGLOBIN 9.7 GM/dL (10.7-15.3); LYMPH % 55.4 % (8-40); MCH 30.5 pg (25.7-33.7); MCHC 33.1 g/dl (32.0-36.0); MEAN CELL VOLUME 92.1 fl (80-96); MEAN PLT VOLUME 7.1 fl (7.5-11.1); NEUT % 30.5 % (42.8-82.8); PLATELET COUNT 250 K/MM3 (134-434); RBC 3.17 M/mm3 (3.60-5.2); RDW 14.6 % (11.6-15.6); WHITE BLOOD COUNT 6.1 K/mm3 (4.0-10.0)
[2019-02-12 09:06] LABS: ALBUMIN 2.8 g/dl (3.4-5.0); ALK PHOS 163 U/L (45-117); ANION GAP 6 MMOL/L (8-16); BILIRUBIN,TOTAL < 0.1 mg/dL (0.2-1); BLOOD UREA NITROGEN 16 mg/dL (7-18); CALCIUM 8.2 mg/dL (8.5-10.1); CHLORIDE 108 mmol/L (98-107); CO2 27 mmol/L (21-32); CREATININE 0.8 mg/dL (0.55-1.3); GLUCOSE,RANDOM 90 mg/dL (74-106); POTASSIUM 4.3 mmol/L (3.5-5.1); SGOT/AST 14 U/L (15-37); SGPT/ALT 14 U/L (13-61); SODIUM 141 mmol/L (136-145); TOT PROT 6.2 g/dl (6.4-8.2)
[2019-02-12] MEDS ORDERED: PT OWN MED DRAWER 7, Y5N ONE ×2 (10:11→22:33)
[2019-02-12] MEDS ORDERED: cefTRIAXone SODIUM 1 GM VIAL ONE (10:11)
[2019-02-12] MEDS ORDERED: DEXTROSE 5%-WATER - 50 ML IVPB ONE (10:11)
[2019-02-12] MEDS: LACOSAMIDE 50 MG TABLET PO SCH ×2 (10:18→22:34)
[2019-02-12] MEDS: MULTIVITAMINS (DAILY MVI) TABLET (FP) PO SCH (10:18)
[2019-02-12] MEDS: levETIRAcetam 500 MG TABLET (FP) PO SCH ×2 (10:19→22:35)
[2019-02-12] MEDS: CEFTRIAXONE 1 GM in DEXTROSE 5%-WATER - 50 ML IVPB SCH (10:20)
[2019-02-12] MEDS: HEPARIN NA (PORCINE) 5,000 UNITS/ML 1ML VIAL SQ SCH ×2 (10:25→22:36)
[2019-02-12] MEDS: carBAMazepine 200 MG TABLET PO SCH ×2 (10:25→22:36)
[2019-02-12] MEDS: PHENobarbital 30 MG TABLET PO SCH (11:00)
[2019-02-12] MEDS: SODIUM CHLORIDE 1,000 ML IV SCH (14:07)
--- NOTE | 2019-02-12 15:12 | PN ---
Progress Note, Physician History of Present Illness: The patient is a 63 year old female with a significant past medical history of developmental delay, s/p nephrectomy (for?), chronic UTIs, and seizure disorder. She was brought into the ED by her family for decreased PO intake x 3 days and increased agitation. Patient is unable to provide me with any further history. She is admitted for a septic workup and antibiotics. - Current Medication List Current Medications: Active Medications Carbamazepine (Tegretol -) 200 mg PO BID [facility] Last Admin: 02/12/19 10:25 Dose: 200 mg Heparin Sodium (Porcine) (Heparin -) 5,000 unit SQ BID MARY Last Admin: 02/12/19 10:25 Dose: 5,000 unit Sodium Chloride (Normal Saline -) 1,000 mls @ 75 mls/hr IV ASDIR [facility] Last Admin: 02/12/19 14:07 Dose: 75 mls/hr Ceftriaxone Sodium 1 gm/ (Dextrose) 50 mls @ 100 mls/hr IVPB DAILY [facility]; Protocol Last Admin: 02/12/19 10:20 Dose: 100 mls/hr Lacosamide (Vimpat -) 150 mg PO BID [facility] Last Admin: 02/12/19 10:18 Dose: 150 mg Levetiracetam (Keppra -) 1,500 mg PO BID [facility] Last Admin: 02/12/19 10:19 Dose: 1,500 mg Mirtazapine (Remeron -) 30 mg PO HS [facility] Last Admin: 02/11/19 22:49 Dose: 30 mg Multivitamins/Minerals/Vitamin C (Tab-A-Vit -) 1 tab PO DAILY [facility] Last Admin: 02/12/19 10:18 Dose: 1 tab Phenobarbital (Phenobarbital -) 30 mg PO BID [facility] Stop: 02/12/19 21:59 Last Admin: 02/12/19 11:00 Dose: 30 mg - Objective Vital Signs: Vital Signs Temperature 98 F 02/12/19 14:07 Pulse Rate 82 02/12/19 14:07 Respiratory Rate 18 02/12/19 14:07 Blood Pressure 102/61 02/12/19 14:07 O2 Sat by Pulse Oximetry (%) 98 02/11/19 21:00 Constitutional: Yes: Well Nourished, No Distress, Calm Eyes: Yes: WNL HENT: Yes: WNL Neck: Yes: WNL Cardiovascular: Yes: Regular Rate and Rhythm Respiratory: Yes: WNL Gastrointestinal: Yes: WNL ...Rectal Exam: Yes: Deferred Edema: Yes (bilateral ankles) Integumentary: Yes: WNL Neurological: Yes: Confusion, Lethargy, Unsteady Gait Psychiatric: Yes: Alert Labs: CBC, BMP 02/12/19 08:00 02/12/19 08:00 INR, PTT INR 0.98 (0.83-1.09) 02/08/19 18:30 Problem List - Problems (1) Seizures Assessment/Plan: Patient on Keppra, Vimpat and Phenobarbital home medications. Home seizure medications restarted on 02/10/19. She had a witnessed seizure 02/10 that lasted approximately 5 seconds with upper body tremors. Continue with seizure precautions and close monitoring of mental status. Awake earlier this a.m., no neuro deficits noted. Maintain safety and aspiration precautions. Keppra level 33.2, phenobarbital and lacosamide levels pending neurology consulted, noted reviewed. Code(s): R56.9 - UNSPECIFIED CONVULSIONS (2) Failure to thrive syndrome, adult Assessment/Plan: Monitor weights, dietary consult for supplements (on Ensure) Will add multivitamin Code(s): R62.7 - ADULT FAILURE TO THRIVE (3) Altered mental status Assessment/Plan: Rule out acute infection. UC + strep virdians, blood cultures negative to date on Ceftriaxone 1 gram daily, day #4. Code(s): R41.82 - ALTERED MENTAL STATUS, UNSPECIFIED (4) UTI (urinary tract infection) Assessment/Plan: + UC, on ceftriaxone. Code(s): N39.0 - URINARY TRACT INFECTION, SITE NOT SPECIFIED (5) Anemia Assessment/Plan: iron studies pending Code(s): D64.9 - ANEMIA, UNSPECIFIED (6) Prophylactic measure Assessment/Plan: SCDs, heparin FEN: normal saline monitor electrolytes consult dietary seizure precautions full code Code(s): Z29.9 - ENCOUNTER FOR PROPHYLACTIC MEASURES, UNSPECIFIED Impression/Plan Impression/Plan: Patient for discharge. SW working on SNF placement. Visit type - Emergency Visit Emergency Visit: Yes ED Registration Date: 02/08/19 Care time: The patient presented to the Emergency Department on the above date and was hospitalized for further evaluation of their emergent condition. - New Patient This patient is new to me today: No - Critical Care Critical Care patient: No - Discharge Referral Referred to [facility] Med P.C.: No
[2019-02-12] MEDS ORDERED: POLYETHYLENE GLYCOL 3350 119 GM BTL PO ONE (17:09)
[2019-02-12] MEDS ORDERED: SENNOSIDES 8.6MG TABLET (FP) PO SCH (22:00)
[2019-02-12] MEDS: DOCUSATE SODIUM 100 MG CAPSULE (FP) PO SCH (22:35)
[2019-02-12] MEDS: MIRTAZAPINE 30 MG TABLET (FP) PO SCH (22:35)
[2019-02-13 04:11] LABS: SERUM IRON SATURATION 62 % (15-55); TOTAL IRON BINDING CAPACITY 172 ug/dL (250-450); UIBC 66 ug/dL (118-369)
[2019-02-13 06:41] LABS: BASO % 0.5 % (0-2.0); HEMATOCRIT 30.6 % (32.4-45.2); HEMOGLOBIN 10.2 GM/dL (10.7-15.3); LYMPH % 60.9 % (8-40); MCH 30.4 pg (25.7-33.7); MCHC 33.4 g/dl (32.0-36.0); MEAN CELL VOLUME 90.9 fl (80-96); MONO % 6.9 % (3.8-10.2); NEUT % 26.7 % (42.8-82.8); PLATELET COUNT 266 K/MM3 (134-434); RBC 3.36 M/mm3 (3.60-5.2); RDW 14.2 % (11.6-15.6)
[2019-02-13] MEDS: DOCUSATE SODIUM 100 MG CAPSULE (FP) PO SCH ×2 (06:41→13:32)
[2019-02-13 07:14] LABS: ALBUMIN 2.9 g/dl (3.4-5.0); BILIRUBIN,TOTAL 0.2 mg/dL (0.2-1); CALCIUM 8.6 mg/dL (8.5-10.1); CREATININE 0.7 mg/dL (0.55-1.3); MAGNESIUM 2.4 mg/dL (1.8-2.4); POTASSIUM 4.3 mmol/L (3.5-5.1); TOT PROT 6.4 g/dl (6.4-8.2)
[2019-02-13] MEDS ORDERED: POLYETHYLENE GLYCOL 3350 119 GM BTL PO SCH (10:00)
[2019-02-13] MEDS ORDERED: PT OWN MED DRAWER 7, Y5N ONE (10:31)
[2019-02-13] MEDS ORDERED: DEXTROSE 5%-WATER - 50 ML IVPB ONE (10:31)
[2019-02-13] MEDS ORDERED: cefTRIAXone SODIUM 1 GM VIAL ONE (10:31)
[2019-02-13] MEDS: levETIRAcetam 500 MG TABLET (FP) PO SCH (10:34)
[2019-02-13] MEDS: MULTIVITAMINS (DAILY MVI) TABLET (FP) PO SCH (10:34)
[2019-02-13] MEDS: CEFTRIAXONE 1 GM in DEXTROSE 5%-WATER - 50 ML IVPB SCH (10:34)
[2019-02-13] MEDS: HEPARIN NA (PORCINE) 5,000 UNITS/ML 1ML VIAL SQ SCH (10:42)
[2019-02-13] MEDS: carBAMazepine 200 MG TABLET PO SCH (10:43)
[2019-02-13 10:44] LABS: ANISOCYTOSIS 0; MACROCYTOSIS 0; PLATELET ESTIMATE NORMAL; TARGET CELLS 1+
[2019-02-13] MEDS ORDERED: BISACODYL 5 MG TABLET.DR (FP) PO ONE (12:09)
[2019-02-13] MEDS: LACOSAMIDE 50 MG TABLET PO SCH (12:28)
--- NOTE | 2019-02-13 14:48 | DS ---
Physical Exam: SUBJECTIVE: Patient seen and examined at bedside OBJECTIVE: Vital Signs Period Temp Pulse Resp BP Sys/Kapadia Pulse Ox Last 24 Hr 97.2 F-98.3 F 65-76 18-18 100-112/54-68 96 PHYSICAL EXAM GENERAL: The patient is awake, alert, in no acute distress. Able to answer yes and no questions. HEAD: Normal with no signs of trauma. EYES: PERRL, extraocular movements intact, sclera anicteric, conjunctiva clear. ENT: Ears normal, nares patent, oropharynx clear without exudates, moist mucous membranes. NECK: Trachea midline, full range of motion, supple. LUNGS: Breath sounds equal, clear to auscultation bilaterally, no wheezes, no crackles, no accessory muscle use. HEART: Regular rate and rhythm, S1, S2 without murmur, rub or gallop. ABDOMEN: Soft, nontender, nondistended, normoactive bowel sounds, no guarding, no rebound, no hepatosplenomegaly, no masses. EXTREMITIES: 2+ pulses, warm, well-perfused, no edema. NEUROLOGICAL: No able to have conversation, gait not observed. PSYCH: Normal mood, normal affect. SKIN: Warm, dry, normal turgor, no rashes or lesions noted. LABS Laboratory Results - last 24 hr 02/10/19 02/12/19 02/13/19 14:35 08:00 06:10 WBC 7.0 RBC 3.36 L Hgb 10.2 L Hct 30.6 L MCV 90.9 MCH 30.4 MCHC 33.4 RDW 14.2 Plt Count 266 MPV 7.0 L Absolute Neuts (auto) 1.9 Neutrophils % 26.7 L Neutrophils % (Manual) 30.8 L Band Neutrophils % 0.0 Lymphocytes % 60.9 H Lymphocytes % (Manual) 59.6 H Monocytes % 6.9 Monocytes % (Manual) 5 Eosinophils % 5.0 H Eosinophils % (Manual) 3.2 Basophils % 0.5 Basophils % (Manual) 0.0 Myelocytes % (Man) 0 Promyelocytes % (Man) 0 Blast Cells % (Manual) 0 Nucleated RBC % 0 Metamyelocytes 0 Hypochromia 0 Platelet Estimate Normal Polychromasia 0 Poikilocytosis 0 Anisocytosis 0 Microcytosis 0 Macrocytosis 0 Target Cells 1+ Sodium Potassium Chloride Carbon Dioxide Anion Gap BUN Creatinine Est GFR (CKD-EPI)AfAm Est GFR (CKD-EPI)NonAf Random Glucose Calcium Magnesium Iron 106 TIBC 172 L Iron Saturation 62 H Total Bilirubin AST ALT Alkaline Phosphatase Total Protein Albumin Phenobarbital 38 02/13/19 06:10 WBC RBC Hgb Hct MCV MCH MCHC RDW Plt Count MPV Absolute Neuts (auto) Neutrophils % Neutrophils % (Manual) Band Neutrophils % Lymphocytes % Lymphocytes % (Manual) Monocytes % Monocytes % (Manual) Eosinophils % Eosinophils % (Manual) Basophils % Basophils % (Manual) Myelocytes % (Man) Promyelocytes % (Man) Blast Cells % (Manual) Nucleated RBC % Metamyelocytes Hypochromia Platelet Estimate Polychromasia Poikilocytosis Anisocytosis Microcytosis Macrocytosis Target Cells Sodium 137 Potassium 4.3 Chloride 106 Carbon Dioxide 27 Anion Gap 5 L BUN 15 Creatinine 0.7 Est GFR (CKD-EPI)AfAm 108.38 Est GFR (CKD-EPI)NonAf 93.51 Random Glucose 79 Calcium 8.6 Magnesium 2.4 Iron TIBC Iron Saturation Total Bilirubin 0.2 AST 20 ALT 19 Alkaline Phosphatase 162 H Total Protein 6.4 Albumin 2.9 L Phenobarbital HOSPITAL COURSE: Date of Admission:02/08/19 Date of Discharge: 02/13/19 Patient brought to ED by family for inability to eat, FTT and increased agitation. UA positive and cx revealed stret viridans-ceftraixone initaited and patient clinically improved. Patient developed seizure on hospital day#2 most likely to missed doses of home medications and UTI. Home meds resumed upon admission. Neurology consulted and no further medications added. Will recommend continuation of abx for a course of 7 days-day /7. Due to the hardship of caring for patient by family at home placement to skilled facility was requested. Minutes to complete discharge: 60 Discharge Summary Reason For Visit: UTI,FAILURE TO THRIVE,ALTERED MENTAL STATUS Current Active Problems Altered mental status (Acute) Anemia (Acute) Failure to thrive (Acute) Failure to thrive syndrome, adult (Acute) Prophylactic measure (Acute) Seizures (Acute) UTI (urinary tract infection) (Acute) Condition: Good - Instructions Diet, Activity, Other Instructions: resume soft diet Disposition: ALF FACILITY - Home Medications Comprehensive Discharge Medication List: Ambulatory Orders Carbamazepine 200 mg PO BID 02/09/19 Escitalopram Oxalate 200 mg DAILY 02/09/19 Mirtazapine 30 mg PO HS 02/09/19 Omeprazole 20 mg PO DAILY 02/09/19 Docusate Sodium [Colace -] 100 mg PO TID capsule 02/13/19 Heparin - 5,000 unit SQ BID vial 02/13/19 Lacosamide [Vimpat -] 150 mg PO BID tab MDD 300 02/13/19 Multivitamins [Multivit ([facility] Formulary)] 1 tab PO DAILY tab 02/13/19 Phenobarbital - 30 mg PO BID tablet MDD 60 02/13/19 Polyethylene Glycol 3350 [Miralax 119 gm Btl -] 17 gm PO DAILY bottle 02/13/19 Sennosides [Senna -] 2 tab PO HS tablet 02/13/19 levETIRAcetam [Keppra -] 1,500 mg PO BID tablet 02/13/19 Problem List - Problems (1) Altered mental status Code(s): R41.82 - ALTERED MENTAL STATUS, UNSPECIFIED (2) Failure to thrive Code(s): [id number] - This patient is new to me today: Yes Date on this admission: 02/13/19 Emergency Visit: Yes ED Registration Date: 02/08/19 Care time: The patient presented to the Emergency Department on the above date and was hospitalized for further evaluation of their emergent condition. Critical Care patient: No - Discharge Referral Referred to [facility] Med P.C.: No Physician Referral: Jose Antonio Solano MD ([facility])
[2019-02-13] MEDS ORDERED: MAGNESIUM CITRATE 300 ML BOTTLE PO ONE (15:17)
[2019-02-13 18:59] VITALS: BP 108/71; PULSE 88; TEMP 97.8
[2019-02-13] MEDS ORDERED: SULFAMETHOXAZOLE/TRIMETHOPRIM 800MG/160MG D.S. TABLET PO SCH (22:00)
== END 2019-02-13 19:18 | DRG 690 ==
LOC: JER 16:47 → JERBED 20:01 → J5S 02-09 03:37
PROVIDERS: ADMIT Internal Medicine; ATTEND Nurse Practitioner Acute Care
DX: N39.0 Urinary tract infection, site not specified (principal); R62.7 Adult failure to thrive; R41.82 Altered mental status, unspecified; F17.210 Nicotine dependence, cigarettes, uncomplicated; R56.9 Unspecified convulsions; R62.50 Unspecified lack of expected normal physiological development in childhood
CPT/HCPCS: 36415; 71045-TC-FY; 80048; 80053; 80177; 80184; 81003; 83540; 83550; 83605; 83735; 84484; 85025; 85027; 85610; 85730; 87040; 87077; 87086; 93005; 93010; 97116-GP; 97161-GP; 99283-25; G0480; J1644; J7030